=== PATIENT | female | born 1985 | race Caucasian/White ===

== ENCOUNTER 2016-07-09 20:25 | Emergency (ER) | payer MEDICAID ==
[2016-07-09] MEDS ORDERED: Acetaminophen 500 MG Tab PO ONE (20:44)
--- NOTE | 2016-07-09 20:46 | EDM.PDOC ---
ED HPI Skin/Rash - General Chief Complaint: Skin Complaint Stated Complaint: BUMP UNDER LEFT ARM Time Seen by Provider: 07/09/16 20:45 Source: Reports: Patient History Limitations: Reports: No limitations - History of Present Illness INITIAL COMMENTS - FREE TEXT/NARRATIVE: HISTORY AND PHYSICAL: History of present illness: [Patient comes to the emergency room complaining of left axillary pain. States that a couple of days ago she popped a pimple-like lesion in her left armpit. It became red and more painful over the past several days. She's felt some nausea at times and has also felt feverish. No chills, vomiting, chest pain, shortness of breath or difficulty breathing. She's not taken any medications for this. She is allergic to ibuprofen. Experiences pain with lifting her arm and movement of her left arm. He otherwise has no complaints or concerns.] Review of systems: As per history of present illness and below otherwise all systems reviewed and negative. Past medical history: As per history of present illness and as reviewed below otherwise noncontributory. Surgical history: As per history of present illness and as reviewed below otherwise noncontributory. Social history: No reported history of drug or alcohol abuse. Family history: As per history of present illness and as reviewed below otherwise noncontributory. Physical exam: HEENT: Atraumatic, normocephalic. Neck supple, no lymphadenopathy. mucous membranes moist and pink. Lungs: Clear to auscultation, breath sounds equal bilaterally, chest nontender. Heart: S1S2, regular rhythm. Abdomen: Soft, nondistended, nontender. Extremities: Examination of left axilla shows a pimple-like lesion superior of axillary crease. This was covered with a scab and appears to have been opened. It is not draining but is surrounded by erythema. No drainage. Axillary lymph nodes are enlarged and tender but not erythematous. No red streaking up her arm. Neurovascular unremarkable. Neuro: Awake, alert, oriented. Motor and sensory unremarkable throughout. Exam nonfocal. Diagnostics: [CBC] Therapeutics: [Tylenol 1 g by mouth, Rocephin 1 g IM] Impression: [Left axillary abscess Left axillary lymphadenopathy] Plan: [WBC is 12.45. Rx is given for Bactrim DS twice a day for the next 10 days no refills. Followup with primary care provider on Tuesday. Urged patient not to pick at any pimples or wounds in her armpit. May apply ice packs as needed. All questions are answered and concerns are addressed.] Definitive disposition and diagnosis as appropriate pending reevaluation and review of above. - Related Data Allergies Allergy/AdvReac Type Severity Reaction Status Date / Time ibuprofen Allergy Unknown Hives Verified 07/09/16 20:59 Home Meds: Ambulatory Orders Medication Instructions Recorded Confirmed . [No Known Home Meds] 01/24/16 07/09/16 Past Medical History HEENT History: Reports: None Cardiovascular History: Reports: None Respiratory History: Reports: Pneumonia, recurrent Other Gastrointestinal History: Chrohn's Other OB/BYN History: Cervical cancer Psychiatric History: Reports: None Oncologic (Cancer) History: Reports: Cervix, Uterine Dermatologic History: Reports: None - Infectious Disease History Infectious Disease History: Reports: None - Past Surgical History GI Surgical History: Reports: Cholecystectomy, Colonoscopy Female Surgical History: Reports: Hysterectomy Other Female Surgeries/Procedures: 2 partial hysterectomy-removed everything , multiple laparoscopy Musculoskeletal Surgical History: Reports: Shoulder surgery Social & Family History - Family History Family Medical History: Noncontributory - Tobacco Use Smoking Status *Q: Current Every Day Smoker Years of Tobacco use: 10 Packs/Tins Daily: 0.3 Used Tobacco, but Quit: No Second Hand Smoke Exposure: No - Alcohol Use Days Per Week of Alcohol Use: 0 Number of Drinks Per Day: 0 Total Drinks Per Week: 0 - Recreational Drug Use Recreational Drug Use: No Drug Use in Last 12 Months: No ED ROS GENERAL - Review of Systems Review Of Systems: ROS reveals no pertinent complaints other than HPI. ED EXAM, SKIN/RASH Exam: See Below Course - Vital Signs Last Recorded V/S: Last Vital Signs Temp 98.1 F 07/09/16 21:00 Pulse 85 07/09/16 21:00 Resp 16 07/09/16 21:00 BP 96/60 07/09/16 21:00 Pulse Ox 98 07/09/16 21:00 - Orders/Labs/Meds Labs: Laboratory Tests 07/09/16 Range/Units 20:54 WBC 12.45 H (4.0-11.0) K/uL RBC 3.96 L (4.30-5.90) M/uL Hgb 12.2 (12.0-16.0) g/dL Hct 37.1 (36.0-46.0) % MCV 93.7 (80.0-98.0) fL MCH 30.8 (27.0-32.0) pg MCHC 32.9 (31.0-37.0) g/dL RDW Std Deviation 47.2 (28.0-62.0) fl RDW Coeff of Christina 14 (11.0-15.0) % Plt Count 171 (150-400) K/uL MPV 10.70 (7.40-12.00) fL Neut % (Auto) 68.8 (48.0-80.0) % Lymph % (Auto) 23.1 (16.0-40.0) % [place] % (Auto) 7.6 (0.0-15.0) % Eos % (Auto) 0.3 (0.0-7.0) % Baso % (Auto) 0.2 (0.0-1.5) % Neut # 8.6 H (1.4-5.7) K/uL Lymph # 2.9 H (0.6-2.4) K/uL [place] # 0.9 H (0.0-0.8) K/uL Eos # 0.0 (0.0-0.7) K/uL Baso # 0.0 (0.0-0.1) K/uL Nucleated RBC % 0.0 /100WBC Nucleated RBCs # 0 K/uL Meds: Medications Discontinued Medications Generic Name Dose Route Start Last Admin Trade Name Freq PRN Reason Stop Dose Admin Acetaminophen 1,000 mg 07/09/16 20:44 07/09/16 20:48 Tylenol Extra Strength PO 07/09/16 20:45 1,000 mg ONETIME ONE Administration Ceftriaxone Sodium 1,000 mg/ 4 mls @ 4 mls/sec 07/09/16 21:06 07/09/16 21:24 Lidocaine HCl IM 07/09/16 21:07 4 mls/sec ONETIME ONE Administration Departure - Departure Time of Disposition: 21:20 Disposition: Home, Self-Care 01 Condition: good Clinical Impression: Abscess of axilla, left, Lymphadenopathy, axillary Referrals: Lorenzo Flowers MD [Primary Care Provider] - Forms: ED Department Discharge Additional Instructions: The following information is given to patients seen in the emergency department who are being discharged to home. This information is to outline your options for follow-up care. We provide all patients seen in our emergency department with a follow-up referral. The need for follow-up, as well as the timing and circumstances, are variable depending upon the specifics of your emergency department visit. If you don't have a primary care physician on staff, we will provide you with a referral. We always advise you to contact your personal physician following an emergency department visit to inform them of the circumstance of the visit and for follow-up with them and/or the need for any referrals to a consulting specialist. The emergency department will also refer you to a specialist when appropriate. This referral assures that you have the opportunity for follow-up care with a specialist. All of these measure are taken in an effort to provide you with optimal care, which includes your follow-up. Under all circumstances we always encourage you to contact your private physician who remains a resource for coordinating your care. When calling for follow-up care, please make the office aware that this follow-up is from your recent emergency room visit. If for any reason you are refused follow-up, please contact the [facility] emergency department at and asked to speak to the emergency department charge nurse. [facility] [address] [place] [id number] Followup with primary care provider at the clinic listed above on July 12. Take Tylenol as needed for discomfort. Take antibiotics as prescribed. May use an ice pack if it helps with pain and inflammation. Do not pick at work at into any lesions on her skin, especially to her left arm. Return to ER as needed and as discussed.
[2016-07-09] MEDS ORDERED: cefTRIAXone 1,000 MG in Lidocaine 1% 4 ML IM ONE (21:06)
[2016-07-09 22:12] VITALS: BP 108/58
== END 2016-07-09 21:53 | disposition home or self-care (01) ==
LOC: MW.ED 20:25
DX: L02.412 Cutaneous abscess of left axilla (principal); R59.0 Localized enlarged lymph nodes; F17.210 Nicotine dependence, cigarettes, uncomplicated; Z88.6 Allergy status to analgesic agent; Z90.710 Acquired absence of both cervix and uterus; Z90.89 Acquired absence of other organs; Z98.890 Other specified postprocedural states
CPT/HCPCS: 36415; 85025; 96372; 99283; A9270; J0696

== ENCOUNTER 2016-07-10 14:00 | Emergency (ER) | payer MEDICAID ==
[2016-07-10 14:43] VITALS: BP 104/66
--- NOTE | 2016-07-10 14:54 | EDM.PDOC ---
ED HPI GENERAL MEDICAL PROBLEM - General Chief Complaint: General Stated Complaint: FEVER Time Seen by Provider: 07/10/16 14:50 Source of Information: Reports: Patient History Limitations: Reports: No limitations - History of Present Illness INITIAL COMMENTS - FREE TEXT/NARRATIVE: HISTORY AND PHYSICAL: History of present illness: [Pt comes to the ER complaining of continued pain to her L axilla. She was evaluated for this originally yesterday. She was given 1 g of Rocephin and started on Bactrim DS. Overnight, she developed a fever and has had increased pain to her abscess and armpit.] Review of systems: As per history of present illness and below otherwise all systems reviewed and negative. Past medical history: As per history of present illness and as reviewed below otherwise noncontributory. Surgical history: As per history of present illness and as reviewed below otherwise noncontributory. Social history: No reported history of drug or alcohol abuse. Family history: As per history of present illness and as reviewed below otherwise noncontributory. Physical exam: HEENT: Atraumatic, normocephalic. Examination of left axilla shows some erythema surrounding axillary tissues. Increased tenderness and swelling to left axilla. No fluctuance is appreciated. No drainage or head to the abscess. Extremities: Atraumatic. Neurovascular unremarkable. Neuro: Awake, alert, oriented. Motor and sensory unremarkable throughout. Exam nonfocal. Therapeutics: [Rocephin 1 gram IM] Impression: [Left axillary abscess] Plan: [Discussed with patient that her current symptoms are normal disease progression for axillary abscess and that she should search improve in the next 24-48 hours. She is advised to apply heat packs to affected area. We discussed criteria for returning to the ER for evaluation. Will repeat Rocephin 1 g today and give Rx for [place] 5/325mg (#20) si po q 4-6 hours prn pain 0 RF's. All questions are answered and concerns are addressed.] Definitive disposition and diagnosis as appropriate pending reevaluation and review of above. Left Arm Pain Score (Numeric/FACES): 9 - Related Data Allergies Allergy/AdvReac Type Severity Reaction Status Date / Time ibuprofen Allergy Unknown Hives Verified 07/10/16 14:46 Home Meds: Home Meds Sulfamethoxazole/Trimethoprim [Bactrim Ds Tablet] 800 mg PO BID 07/10/16 [ History] Past Medical History HEENT History: Reports: None Cardiovascular History: Reports: None Respiratory History: Reports: Pneumonia, recurrent Gastrointestinal History: Reports: Irritable bowel syndrome Other Gastrointestinal History: Chrohn's Genitourinary History: Reports: None Other OB/BYN History: Cervical cancer Musculoskeletal History: Reports: None Neurological History: Reports: None Psychiatric History: Reports: None Endocrine/Metabolic History: Reports: None Hematologic History: Reports: None Immunologic History: Reports: None Oncologic (Cancer) History: Reports: Cervix, Uterine Dermatologic History: Reports: None - Infectious Disease History Infectious Disease History: Reports: None - Past Surgical History GI Surgical History: Reports: Cholecystectomy, Colonoscopy Female Surgical History: Reports: Hysterectomy Other Female Surgeries/Procedures: 2 partial hysterectomy-removed everything , multiple laparoscopy Musculoskeletal Surgical History: Reports: Shoulder surgery Social & Family History - Family History Family Medical History: Noncontributory - Tobacco Use Smoking Status *Q: Current Every Day Smoker Years of Tobacco use: 10 Packs/Tins Daily: 0.3 Used Tobacco, but Quit: No Second Hand Smoke Exposure: No - Caffeine Use Caffeine Use: Reports: Energy drinks, Soda - Alcohol Use Days Per Week of Alcohol Use: 0 Number of Drinks Per Day: 0 Total Drinks Per Week: 0 - Recreational Drug Use Recreational Drug Use: No Drug Use in Last 12 Months: No ED ROS GENERAL - Review of Systems Review Of Systems: ROS reveals no pertinent complaints other than HPI. ED EXAM, GENERAL - Physical Exam Exam: See Below Course - Vital Signs Last Recorded V/S: Last Vital Signs Temp 98.6 F 07/10/16 14:40 Pulse 106 H 07/10/16 14:40 Resp 16 07/10/16 14:40 BP 104/66 07/10/16 14:40 Pulse Ox 100 07/10/16 14:40 - Orders/Labs/Meds Meds: Medications Discontinued Medications Generic Name Dose Route Start Last Admin Trade Name Daniela PRN Reason Stop Dose Admin Ceftriaxone Sodium 1,000 mg/ 4 mls @ 4 mls/sec 07/10/16 15:05 07/10/16 15:32 Lidocaine HCl IM 07/10/16 15:06 4 mls/sec ONETIME ONE Administration Departure - Departure Time of Disposition: 15:30 Disposition: Home, Self-Care 01 Condition: good Clinical Impression: Abscess of axilla, left Instructions: Abscess, [id number] Referrals: PCP,None [Primary Care Provider] - Forms: ED Department Discharge, ED Department Discharge
[2016-07-10] MEDS ORDERED: cefTRIAXone 1,000 MG in Lidocaine 1% 4 ML IM ONE (15:05)
== END 2016-07-10 15:40 | disposition home or self-care (01) ==
LOC: MW.ED 14:00
DX: L02.412 Cutaneous abscess of left axilla (principal); F17.210 Nicotine dependence, cigarettes, uncomplicated; Z88.6 Allergy status to analgesic agent; Z90.89 Acquired absence of other organs; Z90.710 Acquired absence of both cervix and uterus
CPT/HCPCS: 96372; 99283; J0696

== ENCOUNTER 2016-07-29 01:13 | Emergency (ER) | payer MEDICAID ==
[2016-07-29 01:23] VITALS: BP 118/63
[2016-07-29] MEDS ORDERED: Ketorolac 30 MG/ML SDV IM ONE (01:59)
--- NOTE | 2016-07-29 02:02 | EDM.PDOC ---
ED HPI Trauma - General Chief Complaint: Upper Extremity Injury/Pain Stated Complaint: ARM PROBLEMS Time Seen by Provider: 07/29/16 01:29 Source: Reports: Patient History Limitations: Reports: No limitations - History of Present Illness INITIAL COMMENTS - FREE TEXT/NARRATIVE: HISTORY AND PHYSICAL: History of present illness: [30-year-old female with no significant past medical history and by her description recent less than 1 cm left axillary abscess which drained spontaneously, and now presents to the emergency department complaining of pain in that left arm. Patient states that the skin of her arm is very tender in before she came to the hospital there were some redness which is now resolved she has no swelling warmth or mass. She describes that she was seen emergency department for evaluation of what she felt was an abscess in her axilla. She was given Bactrim and she says later this very small abscess less than 1 cm drained spontaneously. No redness open wound or drainage now but she says her arm hurts "all over." she is requesting pain medicine .she denies possibility of as she had a hysterectomy Review of systems: As per history of present illness and below otherwise all systems reviewed and negative. Past medical history: As per history of present illness and as reviewed below otherwise noncontributory. Surgical history: As per history of present illness and as reviewed below otherwise noncontributory. Social history: No reported history of drug or alcohol abuse. Family history: As per history of present illness and as reviewed below otherwise noncontributory. Physical exam: Left upper extremity normal-appearing. What the patient claims is abscess site is normal-appearing with no mass swelling warmth induration or abnormality. Neurovascularly intact. Soft compartments. Normal pulses. Patient has a normal left upper extremity exam HEENT: Atraumatic, normocephalic, pupils reactive, negative for conjunctival pallor or scleral icterus, mucous membranes moist, throat clear, neck supple, nontender, trachea midline. Lungs: Clear to auscultation, breath sounds equal bilaterally, chest nontender. Heart: S1S2, regular, negative for clicks, rubs, or JVD. Abdomen: Soft, nondistended, nontender. Negative for masses or hepatosplenomegaly. Negative for costovertebral tenderness. Pelvis: Stable nontender. Genitourinary: Deferred. Rectal: Deferred. Extremities: Atraumatic, negative for cords or calf pain. Neurovascular unremarkable. Neuro: Awake, alert, oriented. Cranial nerves grossly unremarkable. Cerebellum unremarkable. Motor and sensory unremarkable throughout. Exam nonfocal. Diagnostics: [] Therapeutics: [] Impression: [] Plan: [] Definitive disposition and diagnosis as appropriate pending reevaluation and review of above. Allergies/ADRs: Allergies ibuprofen Allergy (Unknown, Verified 07/29/16 01:18) Hives Home Medications: Ambulatory Orders Sulfamethoxazole/Trimethoprim [Bactrim Ds Tablet] 800 mg PO BID 07/10/16 [ Confirmed 07/29/16] Past Medical History HEENT History: Reports: None Cardiovascular History: Reports: None Respiratory History: Reports: Pneumonia, recurrent Gastrointestinal History: Reports: Irritable bowel syndrome Other Gastrointestinal History: Chrohn's Genitourinary History: Reports: None Other OB/BYN History: Cervical cancer Musculoskeletal History: Reports: None Neurological History: Reports: None Psychiatric History: Reports: None Endocrine/Metabolic History: Reports: None Hematologic History: Reports: None Immunologic History: Reports: None Oncologic (Cancer) History: Reports: Cervix, Uterine Dermatologic History: Reports: None - Infectious Disease History Infectious Disease History: Reports: None - Past Surgical History GI Surgical History: Reports: Cholecystectomy, Colonoscopy Female Surgical History: Reports: Hysterectomy Other Female Surgeries/Procedures: 2 partial hysterectomy-removed everything , multiple laparoscopy Musculoskeletal Surgical History: Reports: Shoulder surgery Social & Family History - Family History Family Medical History: Noncontributory - Tobacco Use Smoking Status *Q: Current Every Day Smoker Years of Tobacco use: 8 Packs/Tins Daily: 0.5 Used Tobacco, but Quit: No Second Hand Smoke Exposure: No - Caffeine Use Caffeine Use: Reports: None - Alcohol Use Days Per Week of Alcohol Use: 0 Number of Drinks Per Day: 0 Total Drinks Per Week: 0 - Recreational Drug Use Recreational Drug Use: No Drug Use in Last 12 Months: No Review of Systems - Review of Systems Review Of Systems: See Below (Her history of present illness) Trauma Exam - Physical Exam Exam: See Below (Per history of present illness) Course - Vital Signs Text/Narrative:: Signs and symptoms consistent with left upper extremity pain with clear anxiety component. Patient is able to move and use the arm normally. She has soft compartments no ear edema warmth fluctuance. The arm is neurovascularly intact with no abnormal findings whatsoever. No evidence of phlebitis. There is no asymmetry compared with the other arm. Normal distal circulation and Refill. It Appears that this patient is manifesting a drug-seeking component as well as her presentation been complicated by significant anxiety. I discussed with patient indication for anti-inflammatory medicine if she's having discomfort, warm compresses and followup with PCP. Patient agreed with IM Toradol however prior to discharge instructions and medication administration patient and her significant other mysteriously disappeared. She was given verbal instructions regarding treatment followup and strict return precautions were given Last Recorded V/S: Last Vital Signs Temp 36.2 C 07/29/16 01:19 Pulse 67 07/29/16 01:19 Resp 16 07/29/16 01:19 BP 118/63 07/29/16 01:19 Pulse Ox 98 07/29/16 01:19 - Orders/Labs/Meds Meds: Medications Discontinued Medications Generic Name Dose Route Start Last Admin Trade Name Dougq PRN Reason Stop Dose Admin Ketorolac Tromethamine 30 mg 07/29/16 01:59 Toradol IM 07/29/16 02:00 ONETIME ONE Departure - Departure Time of Disposition: 01:59 Disposition: Home, Self-Care 01 Condition: good Clinical Impression: Left arm pain Referrals: PCP,None [Primary Care Provider] - Forms: ED Department Discharge Additional Instructions: Is not clear what is causing your left arm discomfort however, you have no evidence of infection, blood clot, bruise, injury, or dermatologic problems. Take 440 mg of Naprosyn twice a day if needed for pain. Use warm compresses on the arm and follow up with your DrRaymond in one day for reevaluation.
== END 2016-07-29 02:17 | disposition home or self-care (01) ==
LOC: MW.ED 01:13
DX: M79.602 Pain in left arm (principal); F17.210 Nicotine dependence, cigarettes, uncomplicated; Z90.49 Acquired absence of other specified parts of digestive tract; Z90.710 Acquired absence of both cervix and uterus; Z88.6 Allergy status to analgesic agent
CPT/HCPCS: 99283

== ENCOUNTER 2017-03-08 14:08 | Emergency (ER) | payer MEDICAID, OTHER ==
--- NOTE | 2017-03-08 14:28 | EDM.PDOC ---
ED HPI GENERAL MEDICAL PROBLEM - General Stated Complaint: SWOLLEN LIP Time Seen by Provider: 03/08/17 14:25 - History of Present Illness INITIAL COMMENTS - FREE TEXT/NARRATIVE: HISTORY AND PHYSICAL: History of present illness: Patient 31-year-old female presents with concern of swollen lower lip related to recent fever blister no fever chills nausea vomiting or other complaints Review of systems: As per history of present illness and below otherwise all systems reviewed and negative. Past medical history: As per history of present illness and as reviewed below otherwise noncontributory. Surgical history: As per history of present illness and as reviewed below otherwise noncontributory. Social history: No reported history of drug or alcohol abuse. Family history: As per history of present illness and as reviewed below otherwise noncontributory. Physical exam: HEENT: Atraumatic, normocephalic, pupils reactive, negative for conjunctival pallor or scleral icterus, mucous membranes moist, throat clear, neck supple, nontender, trachea midline. Patient noted to have viral type lesion left lower lip with some small swelling noted. Lungs: Clear to auscultation, breath sounds equal bilaterally, chest nontender. Heart: S1S2, regular, negative for clicks, rubs, or JVD. Abdomen: Soft, nondistended, nontender. Negative for masses or hepatosplenomegaly. Negative for costovertebral tenderness. Pelvis: Stable nontender. Genitourinary: Deferred. Rectal: Deferred. Extremities: Atraumatic, negative for cords or calf pain. Neurovascular unremarkable. Neuro: Awake, alert, oriented. Cranial nerves II through XII unremarkable. Cerebellum unremarkable. Motor and sensory unremarkable throughout. Exam nonfocal. Diagnostics: None Therapeutics: None Impression: #1 cold sore Definitive disposition and diagnosis as appropriate pending reevaluation and review of above. - Related Data Allergies Allergy/AdvReac Type Severity Reaction Status Date / Time ibuprofen Allergy Unknown Hives Verified 07/29/16 01:18 Home Meds: Home Meds Sulfamethoxazole/Trimethoprim [Bactrim Ds Tablet] 800 mg PO BID 07/10/16 [ History] Past Medical History HEENT History: Reports: None Cardiovascular History: Reports: None Respiratory History: Reports: Pneumonia, Recurrent Gastrointestinal History: Reports: Irritable Bowel Syndrome Other Gastrointestinal History: Chrohn's Genitourinary History: Reports: None Other OB/BYN History: Cervical cancer Musculoskeletal History: Reports: None Neurological History: Reports: None Psychiatric History: Reports: None Endocrine/Metabolic History: Reports: None Hematologic History: Reports: None Immunologic History: Reports: None Oncologic (Cancer) History: Reports: Cervix, Uterine Dermatologic History: Reports: None - Infectious Disease History Infectious Disease History: Reports: None - Past Surgical History Musculoskeletal Surgical History: Reports: Shoulder Surgery Social & Family History - Family History Family Medical History: Noncontributory - Tobacco Use Smoking Status *Q: Current Every Day Smoker Years of Tobacco use: 8 Packs/Tins Daily: 0.5 Used Tobacco, but Quit: No Second Hand Smoke Exposure: No - Caffeine Use Caffeine Use: Reports: None - Alcohol Use Days Per Week of Alcohol Use: 0 Number of Drinks Per Day: 0 Total Drinks Per Week: 0 - Recreational Drug Use Recreational Drug Use: No Drug Use in Last 12 Months: No ED ROS GENERAL - Review of Systems Review Of Systems: ROS reveals no pertinent complaints other than HPI. ED EXAM, GENERAL - Physical Exam Exam: See Below (See dictation) Departure - Departure Time of Disposition: 14:27 Disposition: Home, Self-Care 01 Condition: Good Clinical Impression: Cold sore - Discharge Information Referrals: PCP,None [Primary Care Provider] - Additional Instructions: The following information is given to patients seen in the emergency department who are being discharged to home. This information is to outline your options for follow-up care. We provide all patients seen in our emergency department with a follow-up referral. The need for follow-up, as well as the timing and circumstances, are variable depending upon the specifics of your emergency department visit. If you don't have a primary care physician on staff, we will provide you with a referral. We always advise you to contact your personal physician following an emergency department visit to inform them of the circumstance of the visit and for follow-up with them and/or the need for any referrals to a consulting specialist. The emergency department will also refer you to a specialist when appropriate. This referral assures that you have the opportunity for followup care with a specialist. All of these measure are taken in an effort to provide you with optimal care, which includes your followup. Under all circumstances we always encourage you to contact your private physician who remains a resource for coordinating your care. When calling for followup care, please make the office aware that this follow-up is from your recent emergency room visit. If for any reason you are refused follow-up, please contact the [facility] emergency department at and asked to speak to the emergency department charge nurse. Motrin/Tylenol as directed symptomatic treatment as discussed follow-up private medical doctor 1-2 days return as needed as discussed
[2017-03-08 14:29] VITALS: BP 111/56
== END 2017-03-08 14:45 | disposition home or self-care (01) ==
LOC: MW.ED 14:08
DX: K13.70 Unspecified lesions of oral mucosa (principal); F17.210 Nicotine dependence, cigarettes, uncomplicated; Z88.6 Allergy status to analgesic agent
CPT/HCPCS: 99282; 99283

== ENCOUNTER 2017-06-21 07:57 | Day surgery (SDC) | payer MEDICAID, OTHER ==
[~2017-06-21 07:57] MED LIST: Lactated Ringers 1,000 ML IV SCH
--- NOTE | 2017-06-21 08:56 | PCM.PREANE ---
Preanesthetic Assessment - Anesthesia/Transfusion/Family Hx Anesthesia History: Prior Anesthesia Without Reaction Other Type of Anesthesia Reaction Comment: DENIES ANY PROBLEMS WITH ANESTHESIA Family History of Anesthesia Reaction: No Transfusion History: No Prior Transfusion(s) Intubation History: Unknown - Review of Systems General: No Symptoms Pulmonary: No Symptoms Cardiovascular: No Symptoms Gastrointestinal: Other (BRBPR) Neurological: No Symptoms Other: Reports: None - Physical Assessment NPO Status Date: 06/20/17 NPO Status Time: 23:00 O2 Sat by Pulse Oximetry: 98 Respiratory Rate: 16 Vital Signs: Last Vital Signs Temp 36.4 C 06/21/17 08:20 Pulse 57 L 06/21/17 08:20 Resp 16 06/21/17 08:20 BP 115/54 L 06/21/17 08:20 Pulse Ox 98 06/21/17 08:20 Height: 1.52 m Weight: 46.266 kg ASA Class: 2 Mental Status: Alert & Oriented x3 Airway Class: Mallampati = 2 Dentition: Reports: Normal Dentition Thyro-Mental Finger Breadths: 3 Mouth Opening Finger Breadths: 3 ROM/Head Extension: Full Lungs: Clear to Auscultation, Normal Respiratory Effort Cardiovascular: Regular Rate, Regular Rhythm - Allergies Allergies/Adverse Reactions: Allergies Allergy/AdvReac Type Severity Reaction Status Date / Time ibuprofen Allergy Unknown Hives Verified 06/16/17 13:27 - Blood Blood Available: No - Anesthesia Plan Pre-Op Medication Ordered: None - Acknowledgements Anesthesia Type Planned: MAC Pt an Appropriate Candidate for the Planned Anesthesia: Yes Alternatives and Risks of Anesthesia Discussed w Pt/Guardian: Yes Pt/Guardian Understands and Agrees with Anesthesia Plan: Yes PreAnesthesia Questionnaire HEENT History: Reports: None Cardiovascular History: Reports: None Respiratory History: Reports: Pneumonia, Recurrent Gastrointestinal History: Reports: Irritable Bowel Syndrome Other Gastrointestinal History: Chrohn's Genitourinary History: Reports: None Other Genitourinary History: 2 kidney infections within the last year, was just released from the hospital on 06/14/17, presently on antibiotics 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: 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, Other OB/BYN History: Cervical cancer Musculoskeletal History: Reports: None Other Musculoskeletal History: hx fx arm Neurological History: Reports: None Psychiatric History: Reports: None Endocrine/Metabolic History: Reports: None Hematologic History: Reports: None Immunologic History: Reports: None Oncologic (Cancer) History: Reports: Cervix, Uterine Dermatologic History: Reports: None - Infectious Disease History Infectious Disease History: Reports: None - Past Surgical History Head Surgeries/Procedures: Reports: None GI Surgical History: Reports: Cholecystectomy, Colonoscopy (2 years ago) Female Surgical History: Reports: Hysterectomy Other Female Surgeries/Procedures: 2 partial hysterectomy-removed everything , multiple laparoscopy Musculoskeletal Surgical History: Reports: Shoulder Surgery Other Musculoskeletal Surgeries/Procedures:: spur removed from left shoulder and tendon repair - SUBSTANCE USE Smoking Status *Q: Current Every Day Smoker (1/2 ppd) Tobacco Use Within Last Twelve Months: Cigarettes Second Hand Smoke Exposure: No Days Per Week of Alcohol Use: 0 Number of Drinks Per Day: 0 Total Drinks Per Week: 0 Recreational Drug Use History: No - HOME MEDS Home Medications: Home Meds Ciprofloxacin HCl [Cipro] 2 tab PO TID 06/16/17 [History] - CURRENT (IN HOUSE) MEDS Current Meds: Current Medications Lactated Ringer's (Ringers, Lactated) 1,000 mls @ 125 mls/hr IV ASDIRECTED [facility] Last Admin: 06/21/17 08:21 Dose: 125 mls/hr
[2017-06-21] MEDS ORDERED: Midazolam 1 MG/ML 2 ML SDV ONE (09:20)
[2017-06-21] MEDS ORDERED: fentaNYL 100 MCG/2 ML SDV ONE (09:20)
[2017-06-21] MEDS ORDERED: Lidocaine 2% 5 ML SDV ONE (09:20)
[2017-06-21] MEDS ORDERED: Propofol 200 MG/20 ML SDV ONE (09:20)
[2017-06-21] MEDS ORDERED: Glycopyrrolate 0.2 MG/ML SDV ONE (09:21)
--- NOTE | 2017-06-21 10:17 | PCM.OPNOTE ---
- General Post-Op/Procedure Note Date of Surgery/Procedure: 06/21/17 Operative Procedure(s): egd w bx. colonoscopy w bx Findings: see dict [id number] Pre Op Diagnosis: BRBPR Post-Op Diagnosis: Same Anesthesia Technique: Moderate Sedation Primary Surgeon: Nile Velazco Pathology: egd and colon random bx Complications: None Condition: Good
--- NOTE | 2017-06-21 10:35 | PCM.POSTAN ---
POST ANESTHESIA ASSESSMENT - MENTAL STATUS Mental Status: Alert, Oriented - RESPIRATORY Respiratory Status: Respiratory Rate WNL, Airway Patent, O2 Saturation Stable - CARDIOVASCULAR CV Status: Pulse Rate WNL, Blood Pressure Stable - GASTROINTESTINAL GI Status: No Symptoms - PAIN Pain Score: 2 - POST OP HYDRATION Hydration Status: Adequate & Stable - OBSERVATIONS Free Text/Narrative:: no anesthesia problems
--- NOTE | 2017-06-21 10:52 | PCM48HPAN ---
Post Anesthesia Note - EVALUATION WITHIN 48HRS OF ANESTHETIC Vital Signs in Normal Range: Yes Patient Participated in Evaluation: Yes Respiratory Function Stable: Yes Airway Patent: Yes Cardiovascular Function Stable: Yes Hydration Status Stable: Yes Pain Control Satisfactory: Yes Nausea and Vomiting Control Satisfactory: Yes Mental Status Recovered: Yes Resp Rate: 15 - COMMENTS/OBSERVATIONS Free Text/Narrative:: no anesthesia problems
[2017-06-21] MEDS ORDERED: Acetaminophen/oxyCODONE 325-5 MG Tab PO ONE (10:53)
[2017-06-21 11:10] VITALS: BP 109/71
--- NOTE | 2017-06-21 15:38 | OR ---
SURGEON: Nile Velazco MD DATE OF PROCEDURE: 06/21/2017 PREOPERATIVE DIAGNOSES: Bright red blood per rectum, and abdominal pain. POSTOPERATIVE DIAGNOSES: EGD diagnosis: Gastroesophageal reflux disease and gastritis. Colonoscopy diagnosis: Hemorrhoids. PROCEDURES PERFORMED: EGD with biopsy, and colonoscopy with biopsy. PROCEDURE IN DETAIL: EGD: The patient was taken to the endoscopy room, and with the PAINTLESS DENT REPAIR TECHNICIAN, Diprivan was administered. A well-lubricated EGD scope was gently inserted through the oropharynx, down the esophagus, passing through the gastroesophageal junction, into the stomach. The mucosa was examined upon the passage. Any etiology will be noted. Once in the stomach, we continued to advance to the distal antrum, passed through the pylorus into the second portion of the duodenum. Again, the mucosa was examined for any abnormality and etiology. The scope was then retrieved back to the stomach and then retroflexed to look at the fundus of the stomach. If a biopsy was indicated, we will biopsy the antrum, body, and gastroesophageal junction. The air will be sucked out while the scope is retrieved to reduce the patient's discomfort. The patient tolerated the procedure well. There were no intraoperative complications. Dr. Velazco was present through the whole procedure. Prior to surgery, a time-out had been called, the patient identified, procedure identified and antibiotic administered. The patient was taken to the endoscopy room. A time out was called, patient identified, and procedure identified. Diprivan was then administrated. Patient went from awake to sleep, hearing doctor talking or door closing is normal. Perineum inspection and digital examination were then performed. A well- lubricated colonoscope was gently inserted through the rectum, advanced past the rectosigmoid junction, the descending colon, splenic flexure, transverse colon, hepatic flexure, ascending colon, arrived to the cecum. Cecum was identified as dictated in the finding. Then the scope was carefully withdrawn while attention was paid to the mucosal surface for any abnormality. Air will be sucked out during the scope withdrawal. At the rectum, retroflexed to examine any rectal diseases, fistula or hemorrhoids. During mucosal examination, random biopsy performed. Patient tolerated procedure well. There were no intraoperative complications, and Dr. Velazco was present throughout the whole procedure. FINDINGS: EGD findin. The patient is easily sedated with PAINTLESS DENT REPAIR TECHNICIAN and Diprivan. The patient is soundly snoring. 2. Oropharynx and proximal esophagus are free of disease and GE junction at 40 shows a pretty significant salmon color change consistent with moderate acid reflux. No ulcer or blood observed. Stomach with bile and no food, no blood, no ulcer, but is inflamed. The greater curvature and antrum were kind of inflamed, and duodenum is grossly normal in appearance. The scope retrieved back to the stomach. Retroflexed look at the fundus of stomach, there is no hiatal hernia. Biopsy done of antrum body, GE junction at 40, and sucked out the air while scope pulling out. The mucosa is very inflamed and friable, just a touch, it will start to bleed, rather unusual. Colonoscopy findin. The patient is easily sedated with PAINTLESS DENT REPAIR TECHNICIAN and Diprivan. The patient is soundly snoring. Bowel prep is excellent. The patient does not have any liquid stool or semi-formed stool. 2. Colon rather is straight forward. Cecum indicated by ileocecal fold, one- to-one indentation, light emittance, appendiceal orifice. Mucosa examined upon scope pulling out and the patient does not have diverticulosis, polyp, mass, growth, inflammation, stricture, or AV malformation, ulceration, bleeding, none of those. The patient has mild internal hemorrhoids, very mild. Random biopsy done for abdominal pain. The patient would benefit from repeat colonoscopy in 10 years from today or if clinically indicated otherwise or if the biopsy pathology indicated otherwise. MOLINA / HELIO /[id number] SAI
== END 2017-06-21 11:25 | disposition home or self-care (01) ==
LOC: MW.SDS 07:57
PROVIDERS: ATTEND Surgery
DX: K20.9 Esophagitis, unspecified (principal); K64.8 Other hemorrhoids; Z88.8 Allergy status to other drugs, medicaments and biological substances; Z79.899 Other long term (current) drug therapy; F17.200 Nicotine dependence, unspecified, uncomplicated
CPT/HCPCS: 43239; 45380; A9270; J2250; J3010; J7120; 00813; 88305; 88312; J2704

== ENCOUNTER 2017-11-07 21:03 | Emergency (ER) | payer MEDICAID ==
[2017-11-07 21:15] VITALS: BP 138/63
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
[2017-11-07] MEDS ORDERED: HYDROmorphone 2 MG/ML SDV IM ONE (21:40)
[2017-11-07] MEDS ORDERED: HYDROmorphone 1 MG/ML Syringe IM ONE (21:45)
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
== END 2017-11-07 23:15 | disposition home or self-care (01) ==
LOC: MW.ED 21:03
DX: T74.11XA Adult physical abuse, confirmed, initial encounter (principal); S20.212A Contusion of left front wall of thorax, initial encounter; Z88.6 Allergy status to analgesic agent; F17.210 Nicotine dependence, cigarettes, uncomplicated; Y04.0XXA Assault by unarmed brawl or fight, initial encounter; Y07.01 Husband, perpetrator of maltreatment and neglect
CPT/HCPCS: 70360; 71046; 73000; 81025; 96372; 99284; J1170

== ENCOUNTER 2018-12-14 22:53 | Emergency (ER) | payer OTHER, MEDICAID ==
[2018-12-14] MEDS ORDERED: Morphine 2 MG/ML Syringe IVPUSH ONE (23:13)
[2018-12-14] MEDS ORDERED: Sodium Chloride 0.9% 10 ML Syringe FLUSH PRN (23:13)
[2018-12-14] MEDS ORDERED: Sodium Chloride 0.9% 1,000 ML IV ONE (23:13)
[2018-12-14] MEDS ORDERED: Ondansetron 4 MG/2 ML SDV IVPUSH ONE (23:13)
[2018-12-14] MEDS ORDERED: Sodium Chloride 0.9% 2.5 ML Syringe FLUSH PRN (23:13)
[2018-12-14] MEDS ORDERED: Ketorolac 30 MG/ML SDV IVPUSH ONE (23:13)
--- NOTE | 2018-12-14 23:17 | EDM.PDOC ---
ED HPI GENERAL MEDICAL PROBLEM - General Chief Complaint: Abdominal Pain Stated Complaint: SIDE PAIN Time Seen by Provider: 12/14/18 23:01 - History of Present Illness INITIAL COMMENTS - FREE TEXT/NARRATIVE: HISTORY AND PHYSICAL: History of present illness: The patient is a 33-year-old female who has a history of a total hysterectomy for ovarian cancer in 2009 did not require any adjuvant treatment and presents with sudden onset of left lower quadrant pain associated with vomiting. The patient denies any issues earlier today and had a normal day without fever chills abdominal pain vomiting or diarrhea. She said she had a bowel movement at work prior to the onset of the pain that was not black or bloody and it wasn' t diarrhea or constipation/hard. She says that the pain came on suddenly and is radiating to her lower back but not to her flank. She's had no hematuria dysuria or frequency. She did not take anything for the pain prior to coming here. Earlier today she ate and drank normally. She's had no fevers chills or upper respiratory infections and denies any recent trauma. She has no history of kidney stones. Review of systems: As per history of present illness and below otherwise all systems reviewed and negative. Past medical history: As per history of present illness and as reviewed below otherwise noncontributory. Surgical history: As per history of present illness and as reviewed below otherwise noncontributory. Social history: No reported history of drug or alcohol abuse. Family history: As per history of present illness and as reviewed below otherwise noncontributory. Physical exam: General: Well-developed well-nourished thin female who looks uncomfortable in the room but is nontoxic and vital signs are noted by me HEENT: Atraumatic, normocephalic, pupils reactive, negative for conjunctival pallor or scleral icterus, mucous membranes moist, throat clear, neck supple, nontender, trachea midline. Lungs: Clear to auscultation, breath sounds equal bilaterally, chest nontender. Heart: S1S2, regular rate and rhythm no overt murmurs Abdomen: Soft, nondistended, bowel sounds is hypoactive and there is tympany on percussion throughout the abdomen. There is exquisite tenderness in the left lower quadrant without rebound or guarding and the remainder the abdomen is nontender but the patient has difficulty relaxing for exam. Negative for masses or hepatosplenomegaly. Negative for costovertebral tenderness. Pelvis: Stable nontender. Genitourinary: Deferred. Rectal: Deferred. Extremities: Atraumatic, negative for cords or calf pain. Neurovascular unremarkable. Neuro: Awake, alert, oriented. Cranial nerves II through XII unremarkable. Cerebellum unremarkable. Motor and sensory unremarkable throughout. Exam nonfocal. Diagnostics: CBC CMP UA with reflex lactic acid CT scan of the abdomen and pelvis Therapeutics: IV fluids Zofran Dilaudid Dr. Hargrove was here seeing another patient and did review the CT scan and did not see any acute findings. She did not formally see the patient nor did I consult her. The CT scan results have been reviewed by me and do reveal a mild left hydro-without any evidence of stone and diffuse colonic feces and gas retention. I will give the patient advice on trying to do colon cleansing gently with MiraLAX Colace and Bentyl for any discomfort and I will also give her referral to Dr. Perea to follow that mild hydronephrosis. Patient is aware of testing results and that there are no acute findings requiring admission or surgery and that she needs to follow-up in the clinic. We did talk about the fact that the mild hydro-could be as a result of scar tissue. We'll also give her some Zofran for nausea and vomiting Impression: Left lower abdominal pain, mild left hydronephrosis without stone , constipation and bowel colic Definitive disposition and diagnosis as appropriate pending reevaluation and review of above. LLQ abdomen Pain Score (Numeric/FACES): 9 - Related Data Allergies Allergy/AdvReac Type Severity Reaction Status Date / Time ibuprofen Allergy Unknown Hives Verified 12/14/18 22:58 Home Meds: Home Meds . 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 History: Reports: 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, Other FORGE OPERATOR History: Cervical cancer Musculoskeletal History: Reports: Fracture Other Musculoskeletal History: hx fx arm Neurological History: Reports: None Psychiatric History: Reports: None Endocrine/Metabolic History: Reports: None Hematologic History: Reports: None Immunologic History: Reports: None Oncologic (Cancer) History: Reports: Cervix, Ovarian Dermatologic History: Reports: None - Infectious Disease History Infectious Disease History: Reports: Chicken Pox - Past Surgical History Head Surgeries/Procedures: Reports: None HEENT Surgical History: Reports: None Cardiovascular Surgical History: Reports: None Respiratory Surgical History: Reports: None GI Surgical History: Reports: Cholecystectomy, Other (See Below) Other GI Surgeries/Procedures: laparoscopy Female Surgical History: Reports: Hysterectomy, Salpingo-Oophorectomy Other Female Surgeries/Procedures: hysterectomy, multiple laparoscopies Endocrine Surgical History: Reports: None Neurological Surgical History: Reports: None Musculoskeletal Surgical History: Reports: None Oncologic Surgical History: Reports: None Dermatological Surgical History: Reports: None Social & Family History - Family History Family Medical History: Noncontributory - Tobacco Use Smoking Status *Q: Current Every Day Smoker Years of Tobacco use: 10 Packs/Tins Daily: 1 - Caffeine Use Caffeine Use: Reports: Soda - Recreational Drug Use Recreational Drug Use: No ED ROS GENERAL - Review of Systems Review Of Systems: ROS reveals no pertinent complaints other than HPI. ED EXAM, GENERAL - Physical Exam Exam: See Below (See dictation) Course - Vital Signs Last Recorded V/S: Last Vital Signs Temp 36.5 C 12/14/18 22:56 Pulse 99 12/14/18 22:56 Resp 18 12/14/18 22:56 BP 129/83 12/14/18 22:56 Pulse Ox 99 12/14/18 22:56 - Orders/Labs/Meds Orders: Active Orders 24 hr Category Date Time Status Sodium Chloride 0.9% [Saline Flush] Med 12/14/18 23:13 Active 10 ml FLUSH ASDIRECTED PRN Sodium Chloride 0.9% [Saline Flush] Med 12/14/18 23:13 Active 2.5 ml FLUSH ASDIRECTED PRN Saline Lock Insert [OM.PC] Stat Oth 12/14/18 23:13 Ordered Medication Orders Sodium Chloride (Saline Flush) 10 ml FLUSH ASDIRECTED PRN PRN Reason: Keep Vein Open Sodium Chloride (Saline Flush) 2.5 ml FLUSH ASDIRECTED PRN PRN Reason: Keep Vein Open Labs: Laboratory Tests 12/14/18 12/14/18 12/14/18 Range/Units 23:00 23:15 23:15 WBC 9.68 (4.0-11.0) K/uL RBC 4.25 L (4.30-5.90) M/uL Hgb 13.4 (12.0-16.0) g/dL Hct 39.1 (36.0-46.0) % MCV 92.0 (80.0-98.0) fL MCH 31.5 (27.0-32.0) pg MCHC 34.3 (31.0-37.0) g/dL RDW Std Deviation 42.4 (28.0-62.0) fl RDW Coeff of Christina 13 (11.0-15.0) % Plt Count 263 (150-400) K/uL MPV 11.20 (7.40-12.00) fL Neut % (Auto) 64.0 (48.0-80.0) % Lymph % (Auto) 29.2 (16.0-40.0) % Glynn % (Auto) 6.7 (0.0-15.0) % Eos % (Auto) 0.0 (0.0-7.0) % Baso % (Auto) 0.1 (0.0-1.5) % Neut # (Auto) 6.2 H (1.4-5.7) K/uL Lymph # (Auto) 2.8 H (0.6-2.4) K/uL Glynn # (Auto) 0.7 (0.0-0.8) K/uL Eos # (Auto) 0.0 (0.0-0.7) K/uL Baso # (Auto) 0.0 (0.0-0.1) K/uL Nucleated RBC % 0.0 /100WBC Nucleated RBCs # 0 K/uL Lactate 2.5 H (0.20-2.00) mmol/L Sodium (136-145) mmol/L Potassium (3.5-5.1) mmol/L Chloride (98-107) mmol/L Carbon Dioxide (21.0-32.0) mmol/L BUN (7.0-18.0) mg/dL Creatinine (0.6-1.0) mg/dL Est Cr Clr Drug Dosing mL/min Estimated GFR (MDRD) ml/min Glucose (74-106) mg/dL Calcium (8.5-10.1) mg/dL Total Bilirubin (0.2-1.0) mg/dL AST (15-37) IU/L ALT (14-63) IU/L Alkaline Phosphatase (46-116) U/L Total Protein (6.4-8.2) g/dL Albumin (3.4-5.0) g/dL Globulin (2.6-4.0) g/dL Albumin/Globulin Ratio (0.9-1.6) Urine Color YELLOW Urine Appearance CLEAR Urine pH 5.5 (5.0-8.0) Ur Specific Donald <= 1.005 (1.001-1.035) Urine Protein NEGATIVE (NEGATIVE) mg/dL Urine Glucose (UA) NEGATIVE (NEGATIVE) mg/dL Urine Ketones NEGATIVE (NEGATIVE) mg/dL Urine Occult Blood NEGATIVE (NEGATIVE) Urine Nitrite NEGATIVE (NEGATIVE) Urine Bilirubin NEGATIVE (NEGATIVE) Urine Urobilinogen 0.2 (<2.0) EU/dL Ur Leukocyte Esterase NEGATIVE (NEGATIVE) 12/14/18 Range/Units 23:15 WBC (4.0-11.0) K/uL RBC (4.30-5.90) M/uL Hgb (12.0-16.0) g/dL Hct (36.0-46.0) % MCV (80.0-98.0) fL MCH (27.0-32.0) pg MCHC (31.0-37.0) g/dL RDW Std Deviation (28.0-62.0) fl RDW Coeff of Christina (11.0-15.0) % Plt Count (150-400) K/uL MPV (7.40-12.00) fL Neut % (Auto) (48.0-80.0) % Lymph % (Auto) (16.0-40.0) % Glynn % (Auto) (0.0-15.0) % Eos % (Auto) (0.0-7.0) % Baso % (Auto) (0.0-1.5) % Neut # (Auto) (1.4-5.7) K/uL Lymph # (Auto) (0.6-2.4) K/uL Glynn # (Auto) (0.0-0.8) K/uL Eos # (Auto) (0.0-0.7) K/uL Baso # (Auto) (0.0-0.1) K/uL Nucleated RBC % /100WBC Nucleated RBCs # K/uL Lactate (0.20-2.00) mmol/L Sodium 138 (136-145) mmol/L Potassium 3.3 L (3.5-5.1) mmol/L Chloride 102 (98-107) mmol/L Carbon Dioxide 25.2 (21.0-32.0) mmol/L BUN 8 (7.0-18.0) mg/dL Creatinine 0.9 (0.6-1.0) mg/dL Est Cr Clr Drug Dosing 67.72 mL/min Estimated GFR (MDRD) > 60.0 ml/min Glucose 119 H (74-106) mg/dL Calcium 8.9 (8.5-10.1) mg/dL Total Bilirubin 0.5 (0.2-1.0) mg/dL AST 13 L (15-37) IU/L ALT 21 (14-63) IU/L Alkaline Phosphatase 91 (46-116) U/L Total Protein 7.1 (6.4-8.2) g/dL Albumin 4.1 (3.4-5.0) g/dL Globulin 3.0 (2.6-4.0) g/dL Albumin/Globulin Ratio 1.4 (0.9-1.6) Urine Color Urine Appearance Urine pH (5.0-8.0) Ur Specific Donald (1.001-1.035) Urine Protein (NEGATIVE) mg/dL Urine Glucose (UA) (NEGATIVE) mg/dL Urine Ketones (NEGATIVE) mg/dL Urine Occult Blood (NEGATIVE) Urine Nitrite (NEGATIVE) Urine Bilirubin (NEGATIVE) Urine Urobilinogen (<2.0) EU/dL Ur Leukocyte Esterase (NEGATIVE) Meds: Medications Generic Name Dose Route Start Last Admin Trade Name Freq PRN Reason Stop Dose Admin Sodium Chloride 10 ml 12/14/18 23:13 Saline Flush FLUSH ASDIRECTED PRN Keep Vein Open Sodium Chloride 2.5 ml 12/14/18 23:13 Saline Flush FLUSH ASDIRECTED PRN Keep Vein Open Discontinued Medications Generic Name Dose Route Start Last Admin Trade Name Freq PRN Reason Stop Dose Admin Sodium Chloride 1,000 mls @ 999 mls/hr 12/14/18 23:13 12/14/18 23:19 Normal Saline IV 12/15/18 00:13 999 mls/hr STAT ONE Administration Iopamidol 100 ml 12/15/18 00:04 12/15/18 00:37 Isovue-370 (76%) IVPUSH 12/15/18 00:05 100 ml ONETIME ONE Administration Ketorolac Tromethamine 30 mg 12/14/18 23:13 12/14/18 23:20 Toradol IVPUSH 12/14/18 23:14 Not Given ONETIME ONE Morphine Sulfate 4 mg 12/14/18 23:13 12/14/18 23:20 Morphine IVPUSH 12/14/18 23:14 4 mg ONETIME ONE Administration Ondansetron HCl 4 mg 12/14/18 23:13 12/14/18 23:19 Zofran IVPUSH 12/14/18 23:14 4 mg ONETIME ONE Administration Departure - Departure Time of Disposition: 01:17 Disposition: Home, Self-Care 01 Condition: Good Clinical Impression: Hydronephrosis, left Abdominal pain Qualifiers: Abdominal location: left lower quadrant Qualified Code(s): R10.32 - Left lower quadrant pain Constipation Qualifiers: Constipation type: unspecified constipation type Qualified Code(s): K59.00 - Constipation, unspecified - Discharge Information Referrals: PCP,None [Primary Care Provider] - Forms: ED Department Discharge Additional Instructions: The following information is given to patients seen in the emergency department who are being discharged to home. This information is to outline your options for follow-up care. We provide all patients seen in our emergency department with a follow-up referral. The need for follow-up, as well as the timing and circumstances, are variable depending upon the specifics of your emergency department visit. If you don't have a primary care physician on staff, we will provide you with a referral. We always advise you to contact your personal physician following an emergency department visit to inform them of the circumstance of the visit and for follow-up with them and/or the need for any referrals to a consulting specialist. The emergency department will also refer you to a specialist when appropriate. This referral assures that you have the opportunity for followup care with a specialist. All of these measure are taken in an effort to provide you with optimal care, which includes your followup. Under all circumstances we always encourage you to contact your private physician who remains a resource for coordinating your care. When calling for followup care, please make the office aware that this follow-up is from your recent emergency room visit. If for any reason you are refused follow-up, please contact the [facility] emergency department at and ask to speak to the emergency department charge nurse. [facility] Primary care- Internal Medicine and Family [facility] [address] [place] [id number] [facility] Specialty Care-Urology [address] [place] [id number] Push hydration and start [id number] Colace 100 mg twice a day for the next 10 days and also purchase and use MiraLAX once a day to help with a gentle bowel cleanse. Use the Zofran you have been prescribed for nausea and vomiting as well as the dicyclomine/Bentyl or any bowel spasm. Please call and schedule follow-up appointments with your provider or one of ours in the clinic and also follow-up with Dr. Peera our urologist as we discussed or the mild left dilation of the 2 bleeding from the kidney to the bladder. Return to ER as needed and as discussed - My Orders Last 24 Hours: My Active Orders 12/14/18 23:13 Sodium Chloride 0.9% [Saline Flush] 10 ml FLUSH ASDIRECTED PRN Sodium Chloride 0.9% [Saline Flush] 2.5 ml FLUSH ASDIRECTED PRN Saline Lock Insert [OM.PC] Stat - Assessment/Plan Last 24 Hours: My Active Orders 12/14/18 23:13 Sodium Chloride 0.9% [Saline Flush] 10 ml FLUSH ASDIRECTED PRN Sodium Chloride 0.9% [Saline Flush] 2.5 ml FLUSH ASDIRECTED PRN Saline Lock Insert [OM.PC] Stat
[2018-12-14 23:51] LABS: BLOOD UREA NITROGEN,BUN 8 mg/dL (7.0-18.0); CARBON DIOXIDE,CO2 25.2 mmol/L (21.0-32.0); CHLORIDE,CL 102 mmol/L (98-107); GLUCOSE RANDOM 119 mg/dL (74-106); POTASSIUM,K 3.3 mmol/L (3.5-5.1); SODIUM,NA 138 mmol/L (136-145)
[2018-12-15] MEDS ORDERED: Iopamidol 755 Mg/ML 100 ML Bottle IVPUSH ONE (00:04)
--- NOTE | 2018-12-15 01:04 | CT ---
INDICATION: Left lower quadrant pain TECHNIQUE: CT abdomen and pelvis acquired with IV contrast. 100 cc Isovue 370 COMPARISON: 01/25/2016 FINDINGS: Lower chest: Unremarkable. Liver: Unremarkable. Spleen: Unremarkable. Pancreas: Unremarkable. Gallbladder and bile ducts: Cholecystectomy. Kidneys: Mild left hydronephrosis. No obvious obstructing calculi. Adrenal glands: Unremarkable. GI tract: Diffuse colonic fecal retention. Appendix is normal. Vascular structures: Unremarkable. Lymph nodes: Unremarkable. Miscellaneous: Unremarkable. No free air or significant free fluid. Pelvic Organs: Unremarkable. Bones: Unremarkable for age. IMPRESSION: Diffuse colonic fecal retention. No evidence for diverticulitis. Mild left hydronephrosis. No obstructing calculi demonstrated. Cholecystectomy. Dictated by Dino Gómez MD @ 12/15/2018 1:02:40 AM Please note that all CT scans at this facility use dose modulation, iterative reconstruction, and/or weight-based dosing when appropriate to reduce radiation dose to as low as reasonably achievable. Dictated by: Dino Gómez MD @ 12/15/2018 01:02:49 (Electronically Signed)
[2018-12-15 01:35] VITALS: BP 108/74; PULSE 60
== END 2018-12-15 01:30 | disposition home or self-care (01) ==
LOC: MW.ED 22:53
DX: N13.30 Unspecified hydronephrosis (principal); K59.00 Constipation, unspecified; F17.210 Nicotine dependence, cigarettes, uncomplicated; Z90.710 Acquired absence of both cervix and uterus; Z88.6 Allergy status to analgesic agent; Z90.721 Acquired absence of ovaries, unilateral; Z90.49 Acquired absence of other specified parts of digestive tract
CPT/HCPCS: 36415; 74177; 80053; 81003; 83605; 85025; 96361; 96374; 96375; 99284; J2270; J2405; J7040; Q9967

== ENCOUNTER 2019-01-16 20:29 | Emergency (ER) | payer OTHER ==
[2019-01-16] MEDS ORDERED: Ondansetron 4 MG/2 ML SDV IVPUSH ONE (21:34)
[2019-01-16] MEDS ORDERED: Sodium Chloride 0.9% 1,000 ML IV ONE (21:34)
--- NOTE | 2019-01-16 21:57 | EDM.PDOC ---
ED HPI GENERAL MEDICAL PROBLEM - General Chief Complaint: Genitourinary Problem Stated Complaint: KIDNEY PAINS, URINATING BLOOD Time Seen by Provider: 01/16/19 21:30 Source of Information: Reports: Patient History Limitations: Reports: No Limitations - History of Present Illness INITIAL COMMENTS - FREE TEXT/NARRATIVE: HISTORY AND PHYSICAL: History of present illness: Patient is a 33-year-old female presents to the ED today with concern of blood in her urine and bilateral mid back pain since this afternoon. Patient states she has a history of kidney infections in the past and that her symptoms today are similar to her past kidney infections. Patient states she has not had to be hospitalized in the past for her infections. Patient states she has a history of cervical and ovarian cancer and is status post hysterectomy. Patient denies any other health history or any other symptoms or concerns. Patient denies fever, chills, chest pain, shortness of breath, or cough. Denies headache, neck stiff ness, change in vision, syncope, or near syncope. Denies nausea, vomiting, abdominal pain, diarrhea, constipation, or dysuria. Has not noted any blood in stool. Patient has been eating and drinking appropriately. Review of systems: As per history of present illness and below otherwise all systems reviewed and negative. Past medical history: As per history of present illness and as reviewed below otherwise noncontributory. Surgical history: As per history of present illness and as reviewed below otherwise noncontributory. Social history: See social history for further information Family history: As per history of present illness and as reviewed below otherwise noncontributory. Physical exam: General: Patient is alert, oriented, and in no acute distress. Patient laying comfortably on exam table and tearful. HEENT: Atraumatic, normocephalic, pupils equal and reactive bilaterally, negative for conjunctival pallor or scleral icterus, mucous membranes moist, TMs normal bilaterally, throat clear, neck supple, nontender, trachea midline. No drooling or trismus noted. No meningeal signs. No hot potato voice noted. Lungs: Clear to auscultation, breath sounds equal bilaterally, chest nontender. Heart: S1S2, regular rate and rhythm without overt murmur Abdomen: Soft, nondistended, nontender. Negative for masses or hepatosplenomegaly. Negative for costovertebral tenderness. Pelvis: Stable nontender. Genitourinary: Deferred. Rectal: Deferred. Skin: Intact, warm, dry. No lesions or rashes noted. Extremities: Atraumatic, negative for cords or calf pain. Neurovascular unremarkable. No obvious deformities of the complete spine. No step-offs, point tenderness, or crepitus on palpation of the spinous process. Patient does have mild to moderate pain palpation of the paraspinous muscles of the thoracic or lumbar region. Patient does have full range of motion of complete spine but does have pain with range of motion of lumbar spine. Neuro: Awake, alert, oriented. Cranial nerves II through XII unremarkable. Cerebellum unremarkable. Motor and sensory unremarkable throughout. Exam nonfocal. Notes: Discussed the importance for follow-up with a primary care provider. Voices understanding and is agreeable to plan of care. Denies any further questions or concerns at this time. Diagnostics: CBC, CMP, UA, lipase Therapeutics: Saline, Zofran Prescription: Flexeril Impression: Mid back pain, unspecified H/O hematuria Plan: 1. Take medication as prescribed. You can use Tylenol as directed for pain and discomfort. 2. Follow-up with her primary care provider as discussed. Return to the ED as needed and as discussed. Definitive disposition and diagnosis as appropriate pending reevaluation and review of above. Bilateral Flank Pain Score (Numeric/FACES): 9 - Related Data Allergies Allergy/AdvReac Type Severity Reaction Status Date / Time ibuprofen Allergy Unknown Hives Verified 01/16/19 21:05 Home Meds: Home Meds . 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: Reports: 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, Other AUTOMOBILE TIRE BUILDER History: Cervical cancer Musculoskeletal History: Reports: Fracture Other Musculoskeletal History: hx fx arm Neurological History: Reports: None Psychiatric History: Reports: None Endocrine/Metabolic History: Reports: None Hematologic History: Reports: None Immunologic History: Reports: None Oncologic (Cancer) History: Reports: Cervix, Ovarian Dermatologic History: Reports: None - Infectious Disease History Infectious Disease History: Reports: None - Past Surgical History Head Surgeries/Procedures: Reports: None HEENT Surgical History: Reports: None Cardiovascular Surgical History: Reports: None Respiratory Surgical History: Reports: None GI Surgical History: Reports: Cholecystectomy, Other (See Below) Other GI Surgeries/Procedures: laparoscopy Female Surgical History: Reports: Hysterectomy, Salpingo-Oophorectomy Other Female Surgeries/Procedures: hysterectomy, multiple laparoscopies Endocrine Surgical History: Reports: None Neurological Surgical History: Reports: None Musculoskeletal Surgical History: Reports: None Oncologic Surgical History: Reports: None Dermatological Surgical History: Reports: None Social & Family History - Family History Family Medical History: Noncontributory - Tobacco Use Smoking Status *Q: Current Every Day Smoker Years of Tobacco use: 10 Packs/Tins Daily: 1 - Caffeine Use Caffeine Use: Reports: None - Recreational Drug Use Recreational Drug Use: No ED ROS GENERAL - Review of Systems Review Of Systems: ROS reveals no pertinent complaints other than HPI. ED EXAM, GENERAL - Physical Exam Exam: See Below (See dictation) Course - Vital Signs Last Recorded V/S: Last Vital Signs Temp Pulse 63 01/16/19 22:45 Resp 20 01/16/19 22:45 BP 113/68 01/16/19 22:45 Pulse Ox 98 01/16/19 22:45 - Orders/Labs/Meds Orders: Active Orders 24 hr Category Date Time Status CULTURE URINE [RM] Stat Lab 01/16/19 21:24 Received Labs: Laboratory Tests 01/16/19 01/16/19 01/16/19 Range/Units 21:24 21:24 22:00 WBC 6.63 (4.0-11.0) K/uL RBC 4.32 (4.30-5.90) M/uL Hgb 13.4 (12.0-16.0) g/dL Hct 40.2 (36.0-46.0) % MCV 93.1 (80.0-98.0) fL MCH 31.0 (27.0-32.0) pg MCHC 33.3 (31.0-37.0) g/dL RDW Std Deviation 45.3 (28.0-62.0) fl RDW Coeff of Christina 13 (11.0-15.0) % Plt Count 185 (150-400) K/uL MPV 11.50 (7.40-12.00) fL Neut % (Auto) 48.1 (48.0-80.0) % Lymph % (Auto) 40.4 H (16.0-40.0) % Karnes % (Auto) 10.0 (0.0-15.0) % Eos % (Auto) 1.2 (0.0-7.0) % Baso % (Auto) 0.3 (0.0-1.5) % Neut # (Auto) 3.2 (1.4-5.7) K/uL Lymph # (Auto) 2.7 H (0.6-2.4) K/uL Karnes # (Auto) 0.7 (0.0-0.8) K/uL Eos # (Auto) 0.1 (0.0-0.7) K/uL Baso # (Auto) 0.0 (0.0-0.1) K/uL Nucleated RBC % 0.0 /100WBC Nucleated RBCs # 0 K/uL Sodium (136-145) mmol/L Potassium (3.5-5.1) mmol/L Chloride (98-107) mmol/L Carbon Dioxide (21.0-32.0) mmol/L BUN (7.0-18.0) mg/dL Creatinine (0.6-1.0) mg/dL Est Cr Clr Drug Dosing mL/min Estimated GFR (MDRD) ml/min Glucose (74-106) mg/dL Calcium (8.5-10.1) mg/dL Total Bilirubin (0.2-1.0) mg/dL AST (15-37) IU/L ALT (14-63) IU/L Alkaline Phosphatase (46-116) U/L Total Protein (6.4-8.2) g/dL Albumin (3.4-5.0) g/dL Globulin (2.6-4.0) g/dL Albumin/Globulin Ratio (0.9-1.6) Lipase (73-393) U/L Urine Color YELLOW Urine Appearance CLEAR Urine pH 6.0 (5.0-8.0) Ur Specific Dairy <= 1.005 (1.001-1.035) Urine Protein NEGATIVE (NEGATIVE) mg/dL Urine Glucose (UA) NEGATIVE (NEGATIVE) mg/dL Urine Ketones NEGATIVE (NEGATIVE) mg/dL Urine Occult Blood TRACE-INTACT H (NEGATIVE) Urine Nitrite NEGATIVE (NEGATIVE) Urine Bilirubin NEGATIVE (NEGATIVE) Urine Urobilinogen 0.2 (<2.0) EU/dL Ur Leukocyte Esterase NEGATIVE (NEGATIVE) Urine RBC 1-2 (0-2/HPF) Urine WBC 0-1 (0-5/HPF) Ur Epithelial Cells OCCASIONAL (NONE-FEW) Urine Bacteria RARE (NEGATIVE) Urine HCG, Qual NEGATIVE (NEGATIVE) 01/16/19 Range/Units 22:00 WBC (4.0-11.0) K/uL RBC (4.30-5.90) M/uL Hgb (12.0-16.0) g/dL Hct (36.0-46.0) % MCV (80.0-98.0) fL MCH (27.0-32.0) pg MCHC (31.0-37.0) g/dL RDW Std Deviation (28.0-62.0) fl RDW Coeff of Christina (11.0-15.0) % Plt Count (150-400) K/uL MPV (7.40-12.00) fL Neut % (Auto) (48.0-80.0) % Lymph % (Auto) (16.0-40.0) % Karnes % (Auto) (0.0-15.0) % Eos % (Auto) (0.0-7.0) % Baso % (Auto) (0.0-1.5) % Neut # (Auto) (1.4-5.7) K/uL Lymph # (Auto) (0.6-2.4) K/uL Karnes # (Auto) (0.0-0.8) K/uL Eos # (Auto) (0.0-0.7) K/uL Baso # (Auto) (0.0-0.1) K/uL Nucleated RBC % /100WBC Nucleated RBCs # K/uL Sodium 142 (136-145) mmol/L Potassium 3.7 (3.5-5.1) mmol/L Chloride 104 (98-107) mmol/L Carbon Dioxide 30.7 (21.0-32.0) mmol/L BUN 8 (7.0-18.0) mg/dL Creatinine 0.7 (0.6-1.0) mg/dL Est Cr Clr Drug Dosing 82.88 mL/min Estimated GFR (MDRD) > 60.0 ml/min Glucose 64 L (74-106) mg/dL Calcium 9.1 (8.5-10.1) mg/dL Total Bilirubin 0.2 (0.2-1.0) mg/dL AST 20 (15-37) IU/L ALT 39 (14-63) IU/L Alkaline Phosphatase 98 (46-116) U/L Total Protein 6.4 (6.4-8.2) g/dL Albumin 3.8 (3.4-5.0) g/dL Globulin 2.6 (2.6-4.0) g/dL Albumin/Globulin Ratio 1.5 (0.9-1.6) Lipase 54 L (73-393) U/L Urine Color Urine Appearance Urine pH (5.0-8.0) Ur Specific Dairy (1.001-1.035) Urine Protein (NEGATIVE) mg/dL Urine Glucose (UA) (NEGATIVE) mg/dL Urine Ketones (NEGATIVE) mg/dL Urine Occult Blood (NEGATIVE) Urine Nitrite (NEGATIVE) Urine Bilirubin (NEGATIVE) Urine Urobilinogen (<2.0) EU/dL Ur Leukocyte Esterase (NEGATIVE) Urine RBC (0-2/HPF) Urine WBC (0-5/HPF) Ur Epithelial Cells (NONE-FEW) Urine Bacteria (NEGATIVE) Urine HCG, Qual (NEGATIVE) Meds: Medications Discontinued Medications Generic Name Dose Route Start Last Admin Trade Name Dougq PRN Reason Stop Dose Admin Acetaminophen 1,000 mg 01/16/19 22:40 01/16/19 22:44 Tylenol Extra Strength PO 01/16/19 22:41 1,000 mg ONETIME ONE Administration Sodium Chloride 1,000 mls @ 999 mls/hr 01/16/19 21:34 01/16/19 22:02 Normal Saline IV 01/16/19 22:34 999 mls/hr BOLUS ONE Administration Ondansetron HCl 4 mg 01/16/19 21:34 01/16/19 22:03 Zofran IVPUSH 01/16/19 21:35 4 mg ONETIME ONE Administration Departure - Departure Time of Disposition: 23:00 Disposition: Home, Self-Care 01 Clinical Impression: Mid back pain, History of hematuria - Discharge Information Referrals: PCP,None [Primary Care Provider] - Forms: ED Department Discharge Additional Instructions: The following information is given to patients seen in the emergency department who are being discharged to home. This information is to outline your options for follow-up care. We provide all patients seen in our emergency department with a follow-up referral. The need for follow-up, as well as the timing and circumstances, are variable depending upon the specifics of your emergency department visit. If you don't have a primary care physician on staff, we will provide you with a referral. We always advise you to contact your personal physician following an emergency department visit to inform them of the circumstance of the visit and for follow-up with them and/or the need for any referrals to a consulting specialist. The emergency department will also refer you to a specialist when appropriate. This referral assures that you have the opportunity for follow-up care with a specialist. All of these measure are taken in an effort to provide you with optimal care, which includes your follow-up. Under all circumstances we always encourage you to contact your private physician who remains a resource for coordinating your care. When calling for follow-up care, please make the office aware that this follow-up is from your recent emergency room visit. If for any reason you are refused follow-up, please contact the [facility] Emergency Department at and asked to speak to the emergency department charge nurse. [facility] [address] [place] [id number] [address] [facility] [address] [place] [id number] 1. Take medication as prescribed. You can use Tylenol as directed for pain and discomfort. 2. Follow-up with her primary care provider and urology as discussed. Return to the ED as needed and as discussed. - My Orders Last 24 Hours: My Active Orders 01/16/19 21:24 CULTURE URINE [RM] Stat - Assessment/Plan Last 24 Hours: My Active Orders 01/16/19 21:24 CULTURE URINE [] Stat
[2019-01-16 22:39] LABS: BLOOD UREA NITROGEN,BUN 8 mg/dL (7.0-18.0); CARBON DIOXIDE,CO2 30.7 mmol/L (21.0-32.0); CHLORIDE,CL 104 mmol/L (98-107); GLUCOSE RANDOM 64 mg/dL (74-106); LIPASE 54 U/L (73-393); POTASSIUM,K 3.7 mmol/L (3.5-5.1); SODIUM,NA 142 mmol/L (136-145)
[2019-01-16] MEDS ORDERED: Acetaminophen 500 MG Tab PO ONE (22:40)
[2019-01-16 22:46] VITALS: BP 113/68; PULSE 63
== END 2019-01-16 23:11 | disposition home or self-care (01) ==
LOC: MW.ED 20:29
DX: M54.6 Pain in thoracic spine (principal); F17.210 Nicotine dependence, cigarettes, uncomplicated; Z90.49 Acquired absence of other specified parts of digestive tract; Z90.710 Acquired absence of both cervix and uterus; Z90.722 Acquired absence of ovaries, bilateral; Z88.6 Allergy status to analgesic agent
CPT/HCPCS: 36415; 80053; 81001; 81025; 83690; 85025; 87086; 96361; 96374; 99283; A9270; J2405; J7040

== ENCOUNTER 2019-04-10 07:20 | Emergency (ER) | payer MEDICAID, OTHER ==
[2019-04-10 07:31] VITALS: BP 117/66
[2019-04-10] MEDS ORDERED: Albuterol/Ipratropium 3.0-0.5 MG/3 ML Neb Soln NEB ONE (07:36)
[2019-04-10] MEDS ORDERED: methylPREDNISolone Sodium Succinate 125 MG/2 ML SDV IM ONE (07:36)
--- NOTE | 2019-04-10 07:39 | EDM.PDOC ---
ED HPI GENERAL MEDICAL PROBLEM - General Chief Complaint: Respiratory Problem Stated Complaint: PERSISTENT COUGH Time Seen by Provider: 04/10/19 07:29 - History of Present Illness INITIAL COMMENTS - FREE TEXT/NARRATIVE: HISTORY AND PHYSICAL: History of present illness: Patient is a 33-year-old female with a history of recurrent right lower lobe pneumonia at least 2 times as well as a right pneumothorax in the past who presents with an over one week history of cough occasionally productive of phlegm congestion and body aches and malaise. The patient still smokes cigarettes but denies drug use and did not see a local provider. She did not get her influenza shot. She says she feels wheezy and tight bilaterally but feels more on the right side. She has no nausea or vomiting no abdominal complaints and has been eating and drinking normally. The patient has never been diagnosed with chronic bronchitis or any other pulmonary disorders and has never seen a safe deposit clerk. The patient has a history of a hysterectomy Review of systems: As per history of present illness and below otherwise all systems reviewed and negative. Past medical history: As per history of present illness and as reviewed below otherwise noncontributory. Surgical history: As per history of present illness and as reviewed below otherwise noncontributory. Social history: No reported history of drug or alcohol abuse. Family history: As per history of present illness and as reviewed below otherwise noncontributory. Physical exam: General: Well-developed well-nourished female who has a dry harsh cough in the ED but is speaking clearly without breathlessness. Her voice is not hoarse or muffled and vital signs are noted by me. HEENT: Atraumatic, normocephalic, pupils reactive, negative for conjunctival pallor or scleral icterus, mucous membranes moist, throat clear, neck supple, nontender, trachea midline. Lungs: Normal air exchange bilaterally with some's slightly diminished breath sounds at the bases and bilateral wheezing right greater than left, there is no work of breathing or stridor, breath sounds equal bilaterally, chest nontender. Heart: S1S2, regular rate and rhythm no overt murmurs Abdomen: Soft, nondistended, nontender. NABS. Negative for costovertebral tenderness. Pelvis: Deferred Genitourinary: Deferred. Rectal: Deferred. Extremities: Atraumatic, negative for cords or calf pain. Neurovascular unremarkable. Neuro: Awake, alert, oriented. Cranial nerves II through XII unremarkable. Cerebellum unremarkable. Motor and sensory unremarkable throughout. Exam nonfocal. Diagnostics: Influenza swab chest x-ray Therapeutics: DuoNeb Solu-Medrol IM spacer and teaching Patient is much more open and clear but still has a harsh cough. I discussed with her testing results and need for follow-up with your provider at [facility] for possible further pulmonary evaluation due to these recurrent problems. I will give her prescription for Ventolin and prednisone Impression: Dyspnea with bronchospasm; acute on chronic bronchitis Definitive disposition and diagnosis as appropriate pending reevaluation and review of above. Chest Pain Score (Numeric/FACES): 8 - Related Data Allergies Allergy/AdvReac Type Severity Reaction Status Date / Time ibuprofen Allergy Unknown Hives Verified 04/10/19 07:30 Home Meds: Home Meds . 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 ovarian cancer Musculoskeletal History: Reports: Fracture Other Musculoskeletal History: hx fx arm Neurological History: Reports: None Psychiatric History: Reports: None Endocrine/Metabolic History: Reports: None Hematologic History: Reports: None Immunologic History: Reports: None Oncologic (Cancer) History: Reports: Cervix, Ovarian Dermatologic History: Reports: None - Infectious Disease History Infectious Disease History: Reports: Chicken Pox - Past Surgical History Head Surgeries/Procedures: Reports: None HEENT Surgical History: Reports: None Cardiovascular Surgical History: Reports: None Respiratory Surgical History: Reports: None GI Surgical History: Reports: Cholecystectomy, Other (See Below) Other GI Surgeries/Procedures: laparoscopy Female Surgical History: Reports: Hysterectomy, Salpingo-Oophorectomy Other Female Surgeries/Procedures: hysterectomy, multiple laparoscopies Endocrine Surgical History: Reports: None Neurological Surgical History: Reports: None Musculoskeletal Surgical History: Reports: None Oncologic Surgical History: Reports: None Dermatological Surgical History: Reports: None Social & Family History - Family History Family Medical History: Noncontributory - Tobacco Use Smoking Status *Q: Current Every Day Smoker Years of Tobacco use: 8 Packs/Tins Daily: 0.5 - Caffeine Use Caffeine Use: Reports: None - Recreational Drug Use Recreational Drug Use: No ED ROS GENERAL - Review of Systems Review Of Systems: Comprehensive ROS is negative, except as noted in HPI. ED EXAM, GENERAL - Physical Exam Exam: See Below (see Dictation) Course - Vital Signs Last Recorded V/S: Last Vital Signs Temp 36.2 C 04/10/19 07:27 Pulse 76 04/10/19 07:27 Resp 18 04/10/19 07:27 BP 117/66 04/10/19 07:27 Pulse Ox 94 L 04/10/19 07:27 - Orders/Labs/Meds Orders: Active Orders 24 hr Category Date Time Status Communication Order [RC] STAT Care 04/10/19 07:35 Active RT Aerosol Therapy [RC] ASDIRECTED Care 04/10/19 07:36 Active Meds: Medications Discontinued Medications Generic Name Dose Route Start Last Admin Trade Name Daniela PRN Reason Stop Dose Admin Albuterol/Ipratropium 3 ml 04/10/19 07:36 04/10/19 07:52 Duoneb 3.0-0.5 Mg/3 Ml NEB 04/10/19 07:37 3 ml ONETIME ONE Administration Methylprednisolone Sodium Succinate 125 mg 04/10/19 07:36 04/10/19 08:12 Solu-Medrol IM 04/10/19 07:37 125 mg ONETIME ONE Administration Departure - Departure Time of Disposition: 08:27 Disposition: Home, Self-Care 01 Condition: Good Clinical Impression: Dyspnea and respiratory abnormalities Acute bronchitis Qualifiers: Bronchitis organism: unspecified organism Qualified Code(s): J20.9 - Acute bronchitis, unspecified - Discharge Information Referrals: Lorenzo Flowers MD [Primary Care Provider] - Forms: ED Department Discharge Additional Instructions: The following information is given to patients seen in the emergency department who are being discharged to home. This information is to outline your options for follow-up care. We provide all patients seen in our emergency department with a follow-up referral. The need for follow-up, as well as the timing and circumstances, are variable depending upon the specifics of your emergency department visit. If you don't have a primary care physician on staff, we will provide you with a referral. We always advise you to contact your personal physician following an emergency department visit to inform them of the circumstance of the visit and for follow-up with them and/or the need for any referrals to a consulting specialist. The emergency department will also refer you to a specialist when appropriate. This referral assures that you have the opportunity for followup care with a specialist. All of these measure are taken in an effort to provide you with optimal care, which includes your followup. Under all circumstances we always encourage you to contact your private physician who remains a resource for coordinating your care. When calling for followup care, please make the office aware that this follow-up is from your recent emergency room visit. If for any reason you are refused follow-up, please contact the [facility] emergency department at and ask to speak to the emergency department charge nurse. [address] [place] [address] His connect with your provider at [facility] or one of his associates for reevaluation and further care. Push hydration and reduce and/or quit smoking use. Please use medications as prescribed and you may use [id number] preps for your cough as you choose. Return to ER as needed and as discussed - My Orders Last 24 Hours: My Active Orders 04/10/19 07:35 Communication Order [RC] STAT 04/10/19 07:36 RT Aerosol Therapy [RC] ASDIRECTED - Assessment/Plan Last 24 Hours: My Active Orders 04/10/19 07:35 Communication Order [RC] STAT 04/10/19 07:36 RT Aerosol Therapy [RC] ASDIRECTED
--- NOTE | 2019-04-10 08:09 | CR ---
INDICATION: Shortness of breath TECHNIQUE: Two view chest. FINDINGS: The lungs are clear. The heart, mediastinum and pulmonary vessels are of normal size. There is no evidence of pleural disease. IMPRESSION: Negative chest. Dictated by Uyen Black MD @ Apr 10 2019 8:07AM Signed by Dr. Uyen Black @ Apr 10 2019 8:08AM
[2019-04-10 09:07] VITALS: PULSE 81
== END 2019-04-10 08:40 | disposition home or self-care (01) ==
LOC: MW.ED 07:20
DX: J20.9 Acute bronchitis, unspecified (principal); F17.210 Nicotine dependence, cigarettes, uncomplicated; Z90.710 Acquired absence of both cervix and uterus; Z88.8 Allergy status to other drugs, medicaments and biological substances
CPT/HCPCS: 71046; 87804; 94640; 96372; 99285; J2930; J7620-GY

== ENCOUNTER 2019-11-08 00:46 | Emergency (ER) | payer MEDICAID, OTHER ==
--- NOTE | 2019-11-08 01:26 | EDM.PDOC ---
ED HPI GENERAL MEDICAL PROBLEM - General Chief Complaint: General Stated Complaint: COUGH, SORE THROAT, MUSCLE ACHES, FEVER, VOMITING Time Seen by Provider: 11/08/19 00:47 Source of Information: Reports: Patient History Limitations: Reports: No Limitations - History of Present Illness INITIAL COMMENTS - FREE TEXT/NARRATIVE: 34-year-old female past medical history of heroin use presenting with infectious symptoms. She reports a 3-week history of nonproductive cough, myalgias, fever to 102 Fahrenheit with the last 24 hours, along with sore throat and intermittent mild headaches. This evening, she developed nausea and nonbloody emesis x3 prior to arrival which prompted her emergency department presentation. She denies any recent international travel or sick contacts. Denies neck stiffness, chest discomfort, shortness of breath, abdominal pain, hematemesis, diarrhea, vaginal bleeding or discharge, dysuria, or urinary frequency, or rash. Intermittently taking Tylenol and Motrin without symptomatic relief. Does report some occasional substernal chest discomfort only when coughing, for seconds at a time. She is not having any chest discomfort right now. Nursing triage note mentioned shortness of breath, but she denies this to me during my interview. generalized Pain Score (Numeric/FACES): 10 - Related Data Allergies Allergy/AdvReac Type Severity Reaction Status Date / Time ibuprofen Allergy Unknown Hives Verified 11/08/19 01:03 Home Meds: Home Meds . 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 ovarian cancer Musculoskeletal History: Reports: Fracture Other Musculoskeletal History: hx fx arm Neurological History: Reports: None Psychiatric History: Reports: None Endocrine/Metabolic History: Reports: None Insulin Pump Model and Talent Partner: None Hematologic History: Reports: None Immunologic History: Reports: None Oncologic (Cancer) History: Reports: Cervix, Ovarian Dermatologic History: Reports: None - Infectious Disease History Infectious Disease History: Reports: None - Past Surgical History Head Surgeries/Procedures: Reports: None HEENT Surgical History: Reports: None Cardiovascular Surgical History: Reports: None Respiratory Surgical History: Reports: None GI Surgical History: Reports: Cholecystectomy, Other (See Below) Other GI Surgeries/Procedures: Laparoscopy Female Surgical History: Reports: Hysterectomy, Salpingo-Oophorectomy Other Female Surgeries/Procedures: hysterectomy, multiple laparoscopies Endocrine Surgical History: Reports: None Neurological Surgical History: Reports: None Musculoskeletal Surgical History: Reports: None Oncologic Surgical History: Reports: None Dermatological Surgical History: Reports: None Social & Family History - Family History Family Medical History: Noncontributory - Tobacco Use Smoking Status *Q: Current Every Day Smoker Years of Tobacco use: 10 Packs/Tins Daily: 0.5 - Caffeine Use Caffeine Use: Reports: None - Recreational Drug Use Recreational Drug Use: No ED ROS GENERAL - Review of Systems Review Of Systems: See Below Constitutional: Reports: Fever, Malaise, Fatigue. Denies: Chills HEENT: Reports: Throat Pain. Denies: Nose Pain, Rhinitis Respiratory: Reports: Cough. Denies: Shortness of Breath, Wheezing, Pleuritic Chest Pain, Sputum, Hemoptysis Cardiovascular: Denies: Chest Pain Endocrine: Reports: No Symptoms GI/Abdominal: Reports: Nausea, Vomiting. Denies: Abdominal Pain, Black Stool, Bloody Stool, Constipation, Diarrhea, Difficulty Swallowing, Distension, Hematemesis, Hematochezia, Melena : Denies: Dysuria, Flank Pain, Hematuria, Pain, Urgency Musculoskeletal: Denies: Neck Pain, Back Pain Skin: Denies: Rash, Lesions Neurological: Reports: Headache Psychiatric: Reports: No Symptoms Hematologic/Lymphatic: Reports: No Symptoms Immunologic: Reports: No Symptoms ED EXAM, GENERAL - Physical Exam Exam: See Below Free Text/Narrative:: This patient was examined from the foot of the bed to preserve personal protective equipment during the COVID pandemic area. Vital signs reviewed. Nursing notes reviewed. Constitutional: Awake, alert, non-distressed. Head: Normocephalic, atraumatic. Eyes: EOMI, conjunctiva normal, no discharge, no scleral icterus. Cardiovascular: no edema Pulmonary: normal work of breathing, no accessory muscle use. Speaking comfortably in full sentences, handling secretions without difficulty. Abdomen/GI: nondistended Integumentary: Appropriate color for ethnicity, warm, dry, no pallor or jaundice, no rash. Neurologic: Alert, answering questions appropriately, normal speech, no facial droop, moving all extremities well. Normal voice. Psychiatric: Appropriate mood and affect, normal thought process. Course - Vital Signs Text/Narrative:: Patient hemodynamically stable, afebrile, well-appearing, looks nontoxic. Differential diagnosis includes but is not limited to: novel coronavirus infection, viral URI, pneumonia, influenza, etc. No evidence of respiratory compromise, speaking comfortably in full sentences. Vital signs show no evidence of hypoxia or tachypnea. Normal voice, supple neck. Appears comfortable and nontoxic. We did pursue nasopharyngeal testing for COVID-19 infection. Given no evidence of respiratory compromise, lack of hypoxia, and well appearance, my suspicion for pneumonia is quite low so we deferred x-rays at this time. Patient is stable to discharge home with symptomatic treatment including [id number] Tylenol, ibuprofen, Robitussin and other antitussive therapies. Short course of Zofran was prescribed. The COVID-19 test takes approximately 1 hour to run, so we will obtain the swab and then call the patient with the results. Given instructions about isolating at home until asymptomatic for an appropriate period. Plan: Patient is stable to discharge home with outpatient primary care follow- up. Strict emergency department return precautions were provided, patient indicated understanding. All questions were answered prior to departure. Discharged in good condition. Last Recorded V/S: Last Vital Signs Temp 36.1 C 11/08/19 01:03 Pulse 56 L 11/08/19 01:35 Resp 14 11/08/19 01:35 BP 113/70 11/08/19 01:35 Pulse Ox 96 11/08/19 01:35 - Orders/Labs/Meds Orders: Active Orders 24 hr Category Date Time Status Isolation [COMM] Stat Oth 11/08/19 01:07 Active Labs: Laboratory Tests 11/08/19 Range/Units 01:30 SARS Virus RNA (PCR) NEGATIVE (NEGATIVE) Departure - Departure Time of Disposition: 01:32 Disposition: Home, Self-Care 01 Condition: Good Clinical Impression: Encounter for laboratory testing for COVID-19 virus, Acute viral syndrome - Discharge Information *PRESCRIPTION DRUG MONITORING PROGRAM REVIEWED*: Not Applicable Instructions: COVID-19 Frequently Asked Questions, COVID-19: How to Protect Yourself and Others - CDC, Prevent the Spread of COVID-19 if You Are Sick - CDC Referrals: [facility] - Family Practice [Provider Group] - 1 Week (As needed.) Forms: ED Department Discharge Additional Instructions: Thank you for choosing the [facility] emergency department in [place] for your medical needs today. It was a pleasure caring for you. You were seen in the emergency department for infectious symptoms. Your symptoms are consistent with a viral upper respiratory infection. You will be tested for the COVID-19 coronavirus infection and we will call you with the results in the next 1 to 2 hours. In the meantime, you should stay home if you are feeling sick. You should not be going to work or being around other people if you are experiencing fever, cough, body aches, or if you are generally feeling unwell. You should not go back to work or be around other people until your symptoms have been totally gone for at least 3 days. You can take [id number] Tylenol and Motrin for fever or body aches. Be sure that you are drinking plenty of fluids. You can take [id number] Robitussin or any cough lozenge type medication to help treat your cough. I prescribed a short course of Zofran for nausea, take this as needed. You should come back to the emergency department if you feel like you are having chest pain or you feel like it is hard to breathe. You can follow-up with a family medicine clinic in the next few days if you are not feeling better. Please return the emergency department immediately if your symptoms worsen or if you feel worse. The following information is given to patients seen in the emergency department who are being discharged. This information is to outline your options for follow-up care. We provide all patients seen in our emergency department with a follow-up referral. The need for follow-up, as well as the timing and circumstances, are variable depending upon the specifics of your emergency department visit. If you don't have a primary care physician on staff, we will provide you with a referral. We always advise you to contact your personal physician following an emergency department visit to inform them of the circumstance of the visit and for follow-up with them and/or the need for any referrals to a consulting specialist. The emergency department will also refer you to a specialist when appropriate. This referral assures that you have the opportunity for follow-up care with a specialist. All of these measure are taken in an effort to provide you with optimal care, which includes your follow-up. Under all circumstances we always encourage you to contact your private physician who remains a resource for coordinating your care. When calling for follow-up care, please make the office aware that this follow-up is from your recent emergency room visit. If for any reason you are refused follow-up, please contact the [facility] Emergency Department at and asked to speak to the emergency department charge nurse. If you do not have a primary care physician that is caring for you, you can contact these clinics below to set up an appointment to establish care: [facility] - Primary Care [address] [place] [id number] [facility] [address] [place] [id number] Sepsis Event Note (ED) - Evaluation Sepsis Screening Result: No Definite Risk - Focused Exam Vital Signs: Vital Signs Temp Pulse Resp BP Pulse Ox 11/08/19 01:35 56 L 14 113/70 96 11/08/19 01:03 36.1 C 69 18 113/73 98 - My Orders Last 24 Hours: My Active Orders 11/08/19 01:07 Isolation [COMM] Stat - Assessment/Plan Last 24 Hours: My Active Orders 11/08/19 01:07 Isolation [COMM] Stat
[2019-11-08 01:35] VITALS: BP 113/70; PULSE 56
== END 2019-11-08 01:50 | disposition home or self-care (01) ==
LOC: MW.ED 00:46
DX: B34.9 Viral infection, unspecified (principal); F17.210 Nicotine dependence, cigarettes, uncomplicated; Z20.828 Contact with and (suspected) exposure to other viral communicable diseases; Z88.6 Allergy status to analgesic agent
CPT/HCPCS: 99283; U0002

== ENCOUNTER 2019-11-27 22:42 | Emergency (ER) | payer MEDICAID ==
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
[2019-11-27] MEDS ORDERED: Acetaminophen 500 MG Tab PO ONE (23:54)
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
[2019-11-28 00:12] VITALS: BP 96/51; PULSE 60
== END 2019-11-28 00:15 | disposition home or self-care (01) ==
LOC: MW.ED 22:42
DX: S20.211A Contusion of right front wall of thorax, initial encounter (principal); F17.210 Nicotine dependence, cigarettes, uncomplicated; Z88.6 Allergy status to analgesic agent; V89.2XXA Person injured in unspecified motor-vehicle accident, traffic, initial encounter
CPT/HCPCS: 71046; 99284; A9270; 99283